=== PATIENT | female | born 1960 | race Caucasian/White ===

== ENCOUNTER 2024-02-11 11:28 | Inpatient (IN) ==
[2024-02-11 12:53] LABS: Basophils # (auto) 0.03 K/uL (0.00-0.20); Basophils % (auto) 0.2 %; Eosinophils # (auto) 0.03 K/uL (0.00-0.50); Eosinophils % (auto) 0.2 %; Hematocrit (blood only) 40.3 % (37.0-47.0); Hemoglobin 13.8 g/dl (12.0-16.0); Immature Granulocytes # (auto) 0.05 K/uL (0.01-0.20); Immature Granulocytes % (auto) 0.3 %; Lymphocytes # (auto) 1.42 K/uL (1.20-3.40); Lymphocytes % (auto) 9.3 %; Mean Corpuscular Hemoglobin 29.5 pg (25.0-34.0); Mean Corpuscular Hgb Conc 34.2 g/dL (32.0-36.0); Mean Corpuscular Volume 86.1 fL (80.0-100.0); Mean Platelet Volume 10.4 fL (9.4-12.4); Monocytes # (auto) 0.93 K/uL (0.11-0.59); Monocytes % (auto) 6.1 %; Neutrophils # (auto) 12.81 K/uL (1.40-6.50); Neutrophils % (auto) 83.9 %; Platelet Count 226 K/uL (130-400); RDW Coefficient of Variation 12.8 % (11.5-14.5); RDW Standard Deviation 39.9 fL (36.4-46.3); Red Blood Count 4.68 M/uL (4.20-5.40); White Blood Count 15.27 K/ul (4.8-10.8)
[2024-02-11 12:57] LABS: Albumin Globulin Ratio 1.7 (0.9-2); Albumin Level 4.7 gm/dl (3.4-5.0); BUN Creatinine Ratio 22.8 (10-20); Bilirubin,Total 0.8 mg/dl (0.2-1.0); Calcium 9.5 mg/dl (8.6-10.3); Creatinine Clr Calc Pharmacy 122.1 ml/min; Est GFR (Non-African American) 100.1 ml/min; Globulin 2.8 gm/dl (2.5-4.0); Potassium 3.5 mmol/L (3.5-5.1); Total Protein 7.5 gm/dl (6.0-8.3)
[2024-02-11] MEDS: ONDANSETRON INJ 2 MG/ML 2 ML VIAL IV STA (13:19)
[2024-02-11] MEDS: HYDROmorphone INJ 0.5 MG/0.5 ML SYR IV PRN (13:19)
--- NOTE | 2024-02-11 13:45 | Emergency Department Note ---
Impression & Plan Acute generalized abdominal pain ED Provider Note NAME: MATTHEW RICE AGE: 63 SEX: Female INFORMANT: Patient ED PROVIDER(S): Saud Grissom MD CHIEF COMPLAINT: Abdominal pain PLAN: Disposition: Admitted Outpatient prescription management: none Referral: None MEDICAL DECISION MAKING: Patient presented because of acute abdominal pain. She was guarding on examination. She had a leukocytosis on CBC. Chemistry panel was unremarkable. LFTs and lipase negative. The patient was given Zofran and Dilaudid. She was hydrated. She was sent to CT imaging. CT imaging shows a finding consistent with a perforated appendicitis. Patient was given IV Zosyn. She was much more comfortable on reassessment. Reviewed the findings with patient and family. Consultation was placed with Dr. Mckeon of general surgery. Reviewed the presentation and diagnostic findings. Patient will be taken emergently to the operating room for intervention of her perforated viscus. Care/management discussed with: client delivery manager Level of care consideration(s): After review of the information above and other included data, I feel the patient requires escalation of care to admission Triage Nursing notes: reviewed and agree them. Vital Signs: reviewed and remarkable for no significant abnormalities Additional History obtained from: none Chronic Medical/Social Conditions affecting care: Hypertension Prior/ Outside/ External records reviewed: none Differential Diagnosis: Perforated viscus, obstruction, renal colic, UTI, appendicitis, diverticulitis, mesenteric ischemia, aortic pathology, infections, inflammatory bowel disease, PUD, biliary pathology, as well as other pathologies. Diagnostics, independently interpreted by me: ECG: ECG from urgent care reviewed and patient had a normal sinus rhythm at 61 bpm. No evidence of ST elevation or depression. Cardiac Monitoring: Cardiac monitoring ordered by me: The patient was placed on continuous cardiac monitoring and observed. It revealed a normal sinus rhythm at 74 beats per minute without ectopy or evidence of dysrhythmia. Medical decision rules: none Imaging studies: CT imaging of the abdomen pelvis is consistent with a perforated appendicitis HPI: 63 year old Female arrives for evaluation of acute abdominal pain. This started last night gradually and is described as severe and generalized. The patient also notes the following associated symptoms, felt chilled today. The patient has taken no medication for relieving factors. Current pain is rated as 8/10. No prior history of the same. No prior problems with the gallbladder, liver, pancreas, kidneys. Patient notes she did have blood in her stool last month and was evaluated by PCP. Colonoscopy pending. She notes blood in her stool resolved. She had no abdominal pain at that time. Pt denies LOC, headache, fevers, chills, diaphoresis, visual changes, neck pain, chest pain, breathing difficulties, nausea, vomiting, back pain, melena, hematochezia, urinary symptoms, numbness, weakness, lymphadenopathy, rash, or other complaints.. PAST MEDICAL HISTORY: See Below, high cholesterol PAST SURGICAL HISTORY: See Below, SOCIAL HISTORY: See Below, non-smoker HOME MEDICATIONS: See Below ALLERGIES: See Below VITALS: See Below PHYSICAL EXAMINATION: GENERAL: Awake, alert, uncomfortable-appearing, in no distress HENT: Normocephalic, atraumatic. Oropharynx unremarkable. EYES: Normal conjunctiva. Sclera non-icteric. NECK: Inspection normal. Non-tender. Supple. No nuchal rigidity. FROM. No masses. RESPIRATORY: Clear to auscultation. No wheezes. No rales. Normal respiratory effort. CARDIAC: Normal rate. Normal rhythm. No murmurs. No rubs. Extremities warm and well perfused. Pulses equal. No JVD. GI: Soft, mild-distended. Generalized tenderness to palpation. Positive rebound. Positive guarding. No masses. RECTAL: Deferred. MUSCULOSKELETAL: Atraumatic. Chest examination reveals no tenderness. The back is symmetrical on inspection without obvious abnormality. There is no CVA tenderness to palpation. No joint edema. LOWER EXTREMITIES: Calves are equal size bilaterally and non-tender. No edema. No discoloration. NEURO: Normal sensorium. No sensory or motor deficits noted. SKIN: No rash or jaundice noted. PROCEDURES: none CRITICAL CARE: I have personally spent 35 minutes of critical care time in the direct management of this patient. This includes bedside care, interpretation of diagnostic studies, and testing, discussion with consultants, patient, and family members, and other required patient management activities. These minutes are in excess of all separately billable procedures. OBSERVATION NOTE: none Past Med/Surg History Problem List (Updated 02/11/24 @ 15:18 by Duncan Mckeon MD) Appendicitis Acute generalized abdominal pain (Acute) Neuropathic ulcer of toe of right foot (Acute) Medical History Dyslipidemia Hypertension Idiopathic peripheral neuropathy Surgical History History of ankle surgery Social History Smoking Status: Never smoker Second Hand Exposure: Yes; Hx Alcohol Use: Yes Preferred Language: Khmer Communication Ability: Effective Hearing Ability: Normal Solid Die Cutter Required: No Beliefs That Will Affect Care: None marital status: Current Living Situation: Spouse current occupational status: employed Feels Safe at Home: Yes Childhood Exposure to Second-Hand Smoke: No Diet: regular caffeine: Yes during the past year weight has: remained stable Assistive Devices: Glasses Allergies Allergies Allergy/AdvReac Type Severity Reaction Status Date / Time No Known Allergies Allergy Unverified 09/07/23 12:33 Home Meds Home Medications Medication Instructions Recorded Confirmed amlodipine 5 mg tablet 5 mg PO DAILY 07/04/23 02/11/24 atorvastatin 20 mg tablet 20 mg PO DAILY 07/04/23 02/11/24 losartan 100 1 tab PO DAILY 07/04/23 02/11/24 mg-hydrochlorothiazide 25 mg tablet meloxicam 15 mg tablet 15 mg PO DAILY PRN Other 07/04/23 02/11/24 mirabegron 25 mg tablet,extended 25 mg PO DAILY 07/04/23 02/11/24 release 24 hr (Myrbetriq) naltrexone 4.5 mg capsule 4.5 mg PO BID 07/04/23 02/11/24 carvedilol 12.5 mg tablet 12.5 mg PO BID 02/11/24 02/11/24 carvedilol 3.125 mg tablet 3.125 mg PO UD 02/11/24 02/11/24 hydroxychloroquine 200 mg tablet 200 mg PO DAILY 02/11/24 02/11/24 Results & Data (ED) Vital Signs Vital Signs - 24 hr 02/11/24 11:47 02/11/24 11:57 02/11/24 12:00 Temperature 36.3 C L Temperature Source Temporal Artery Scan Pulse Rate 78 Pulse Rate [Apical] 80 Pulse Rate from SpO2 Sensor Pulse Rhythm [Apical] Pulse Strength [Apical] Respiratory Rate 20 22 Respiratory Effort / Characteristics Respiratory Depth Respiratory Pattern Blood Pressure 133/69 131/69 Blood Pressure [Left Arm] Blood Pressure [Right Arm] 131/69 Blood Pressure Mean 90 97 Blood Pressure Mean [Left Arm] Blood Pressure Mean [Right Arm] 89 Blood Pressure Position [Left Arm] Blood Pressure Position [Right Arm] Pulse Oximetry 95 97 Oxygen Delivery Method Room Air Oxygen Flow Rate Sepsis Recent Fever Within 48 Hours No Sepsis New/Unexplained Change in Mental Status N/A Sepsis Action Taken by Nursing No Action Required 02/11/24 12:03 02/11/24 12:15 02/11/24 12:16 Temperature Temperature Source Pulse Rate 81 73 71 Pulse Rate [Apical] Pulse Rate from SpO2 Sensor 82 72 Pulse Rhythm [Apical] Pulse Strength [Apical] Respiratory Rate 22 18 Respiratory Effort / Characteristics Respiratory Depth Respiratory Pattern Blood Pressure Blood Pressure [Left Arm] Blood Pressure [Right Arm] Blood Pressure Mean Blood Pressure Mean [Left Arm] Blood Pressure Mean [Right Arm] Blood Pressure Position [Left Arm] Blood Pressure Position [Right Arm] Pulse Oximetry 98 99 Oxygen Delivery Method Oxygen Flow Rate Sepsis Recent Fever Within 48 Hours Sepsis New/Unexplained Change in Mental Status Sepsis Action Taken by Nursing 02/11/24 12:30 02/11/24 12:30 02/11/24 12:30 Temperature Temperature Source Pulse Rate 74 Pulse Rate [Apical] Pulse Rate from SpO2 Sensor 74 Pulse Rhythm [Apical] Pulse Strength [Apical] Respiratory Rate 22 Respiratory Effort / Characteristics Respiratory Depth Respiratory Pattern Blood Pressure 131/81 131/81 Blood Pressure [Left Arm] Blood Pressure [Right Arm] Blood Pressure Mean 96 96 Blood Pressure Mean [Left Arm] Blood Pressure Mean [Right Arm] Blood Pressure Position [Left Arm] Blood Pressure Position [Right Arm] Pulse Oximetry 96 Oxygen Delivery Method Oxygen Flow Rate Sepsis Recent Fever Within 48 Hours Sepsis New/Unexplained Change in Mental Status Sepsis Action Taken by Nursing 02/11/24 12:39 02/11/24 12:45 02/11/24 13:01 Temperature Temperature Source Pulse Rate 75 78 Pulse Rate [Apical] Pulse Rate from SpO2 Sensor 75 Pulse Rhythm [Apical] Pulse Strength [Apical] Respiratory Rate 22 18 Respiratory Effort / Characteristics Respiratory Depth Respiratory Pattern Blood Pressure 113/54 L Blood Pressure [Left Arm] Blood Pressure [Right Arm] Blood Pressure Mean 76 Blood Pressure Mean [Left Arm] Blood Pressure Mean [Right Arm] Blood Pressure Position [Left Arm] Blood Pressure Position [Right Arm] Pulse Oximetry 96 97 Oxygen Delivery Method Room Air Oxygen Flow Rate Sepsis Recent Fever Within 48 Hours Sepsis New/Unexplained Change in Mental Status Sepsis Action Taken by Nursing 02/11/24 13:03 02/11/24 13:12 02/11/24 14:20 Temperature Temperature Source Pulse Rate 76 74 Pulse Rate [Apical] 83 Pulse Rate from SpO2 Sensor 76 75 Pulse Rhythm [Apical] Pulse Strength [Apical] Respiratory Rate 16 20 18 Respiratory Effort / Characteristics Respiratory Depth Respiratory Pattern Blood Pressure Blood Pressure [Left Arm] Blood Pressure [Right Arm] 140/74 Blood Pressure Mean Blood Pressure Mean [Left Arm] Blood Pressure Mean [Right Arm] 96 Blood Pressure Position [Left Arm] Blood Pressure Position [Right Arm] Semi-fowlers Pulse Oximetry 97 98 96 Oxygen Delivery Method Oxygen Flow Rate Sepsis Recent Fever Within 48 Hours Sepsis New/Unexplained Change in Mental Status Sepsis Action Taken by Nursing 02/11/24 16:00 02/11/24 18:20 02/11/24 18:30 Temperature 37 C Temperature Source Temporal Artery Scan Pulse Rate Pulse Rate [Apical] 73 102 H 97 H Pulse Rate from SpO2 Sensor Pulse Rhythm [Apical] Regular Regular Regular Pulse Strength [Apical] Normal Normal Respiratory Rate 20 16 21 Respiratory Effort / Characteristics Non-Labored Spontaneous Non-Labored Spontaneous Non-Labored Spontaneous Respiratory Depth Normal Normal Normal Respiratory Pattern Regular Regular Regular Blood Pressure Blood Pressure [Left Arm] 117/69 119/74 Blood Pressure [Right Arm] 131/82 Blood Pressure Mean Blood Pressure Mean [Left Arm] 85 89 Blood Pressure Mean [Right Arm] 98 Blood Pressure Position [Left Arm] Semi-fowlers Semi-fowlers Blood Pressure Position [Right Arm] Pulse Oximetry 96 98 98 Oxygen Delivery Method Room Air Oxymask Oxymask Oxygen Flow Rate 6 4 Sepsis Recent Fever Within 48 Hours Sepsis New/Unexplained Change in Mental Status Sepsis Action Taken by Nursing 02/11/24 18:40 02/11/24 18:50 02/11/24 19:00 Temperature 37.7 C H Temperature Source Oral Pulse Rate Pulse Rate [Apical] 94 H 95 H 95 H Pulse Rate from SpO2 Sensor Pulse Rhythm [Apical] Regular Regular Regular Pulse Strength [Apical] Normal Normal Normal Respiratory Rate 21 22 13 Respiratory Effort / Characteristics Non-Labored Spontaneous Non-Labored Spontaneous Non-Labored Spontaneous Respiratory Depth Normal Normal Normal Respiratory Pattern Regular Regular Regular Blood Pressure Blood Pressure [Left Arm] 118/68 126/66 121/70 Blood Pressure [Right Arm] Blood Pressure Mean Blood Pressure Mean [Left Arm] 84 86 87 Blood Pressure Mean [Right Arm] Blood Pressure Position [Left Arm] Semi-fowlers Semi-fowlers Semi-fowlers Blood Pressure Position [Right Arm] Pulse Oximetry 96 92 94 Oxygen Delivery Method Oxymask Nasal Cannula Nasal Cannula Oxygen Flow Rate 4 2 2 Sepsis Recent Fever Within 48 Hours Sepsis New/Unexplained Change in Mental Status Sepsis Action Taken by Nursing 02/11/24 19:10 02/11/24 19:25 Temperature Temperature Source Pulse Rate Pulse Rate [Apical] 93 H 96 H Pulse Rate from SpO2 Sensor Pulse Rhythm [Apical] Regular Regular Pulse Strength [Apical] Normal Normal Respiratory Rate 20 19 Respiratory Effort / Characteristics Non-Labored Spontaneous Non-Labored Spontaneous Respiratory Depth Normal Normal Respiratory Pattern Regular Regular Blood Pressure Blood Pressure [Left Arm] 124/68 117/68 Blood Pressure [Right Arm] Blood Pressure Mean Blood Pressure Mean [Left Arm] 86 84 Blood Pressure Mean [Right Arm] Blood Pressure Position [Left Arm] Semi-fowlers Semi-fowlers Blood Pressure Position [Right Arm] Pulse Oximetry 94 94 Oxygen Delivery Method Nasal Cannula Nasal Cannula Oxygen Flow Rate 2 2 Sepsis Recent Fever Within 48 Hours Sepsis New/Unexplained Change in Mental Status Sepsis Action Taken by Nursing Laboratory Data 02/11/24 12:10 02/11/24 12:10 Lab Results 02/11/24 Range/Units 12:10 WBC 15.27 H (4.8-10.8) K/ul RBC 4.68 (4.20-5.40) M/uL Hgb 13.8 (12.0-16.0) g/dl Hct 40.3 (37.0-47.0) % MCV 86.1 (80.0-100.0) fL MCH 29.5 (25.0-34.0) pg MCHC 34.2 (32.0-36.0) g/dL RDW Std Deviation 39.9 (36.4-46.3) fL RDW Coeff of Tomas 12.8 (11.5-14.5) % Plt Count 226 (130-400) K/uL MPV 10.4 (9.4-12.4) fL Immature Gran % (Auto) 0.3 % Neut % (Auto) 83.9 % Lymph % (Auto) 9.3 % [place] % (Auto) 6.1 % Eos % (Auto) 0.2 % Baso % (Auto) 0.2 % Neut # (Auto) 12.81 H (1.40-6.50) K/uL Lymph # (Auto) 1.42 (1.20-3.40) K/uL [place] # (Auto) 0.93 H (0.11-0.59) K/uL Eos # (Auto) 0.03 (0.00-0.50) K/uL Baso # (Auto) 0.03 (0.00-0.20) K/uL Immature Gran # (Auto) 0.05 (0.01-0.20) K/uL Sodium 135 L (136-145) mmol/L Potassium 3.5 (3.5-5.1) mmol/L Chloride 98 (98-107) mmol/L Carbon Dioxide 28 (21-32) mmol/L Anion Gap 9 (3-11) BUN 13 (6-23) mg/dl Creatinine 0.57 L (0.6-1.2) mg/dl Est Cr Clr Drug Dosing 122.1 ml/min Est GFR ( Amer) 116.0 ml/min Est GFR (Non-Af Amer) 100.1 ml/min BUN/Creatinine Ratio 22.8 H (10-20) Glucose 118 H (70-99(Fasting)) mg/dl Calcium 9.5 (8.6-10.3) mg/dl Total Bilirubin 0.8 (0.2-1.0) mg/dl AST 15 (13-39) U/L ALT 23 (7-52) U/L Alkaline Phosphatase 54 (34-104) U/L Total Protein 7.5 (6.0-8.3) gm/dl Albumin 4.7 (3.4-5.0) gm/dl Globulin 2.8 (2.5-4.0) gm/dl Albumin/Globulin Ratio 1.7 (0.9-2) Lipase 22 (11-82) U/L Administered Medications Hydromorphone HCl (Hydromorphone Inj 0.5 Mg/0.5 Ml Syr) 0.5 mg IV Q15M PRN PRN Reason: Pain Stop: 02/25/24 13:11 Last Admin: 02/11/24 13:32 Dose: 0.5 mg Documented By: Admin: 02/11/24 13:19 Dose: 0.5 mg Documented By: ML Discontinued Medications Bupivacaine HCl/Epinephrine Bitart (Bupivacaine/Epinephrine 0.5% Mpf 1:200,000 30 Ml Vial) Confirm Administered Dose 30 ml .ROUTE .STK-MED ONE Stop: 02/11/24 16:22 Last Admin: 02/11/24 17:59 Dose: 20 ml Documented By: [facility] Sodium Chloride (Nss) 1,000 mls @ 999 mls/hr IV .Q1H1M ONE Stop: 02/11/24 14:27 Last Admin: 02/11/24 14:19 Dose: 999 mls/hr Documented By: ML Piperacillin Sod/Tazobactam Sod (Zosyn) 4.5 gm in 100 mls @ 200 mls/hr IV NOW ONE Stop: 02/11/24 14:56 Last Admin: 02/11/24 14:31 Dose: 200 mls/hr Documented By: ML Ondansetron HCl (Ondansetron Inj 2 Mg/Ml 2 Ml Vial) 4 mg IV NOW STA Stop: 02/11/24 13:13 Last Admin: 02/11/24 13:19 Dose: 4 mg Documented By: ML Imaging Data Radiologist's Impression: Abdomen/Pelvis CT 02/11/24 13:26 CT OF THE ABDOMEN AND PELVIS WITHOUT CONTRAST CLINICAL HISTORY: severe abd pain, guarding, yobani WBC ?perf COMPARISON STUDY: No previous studies for comparison. TECHNIQUE: Axial images of the abdomen and pelvis were obtained without IV contrast. Images were reviewed in the axial, sagittal, and coronal planes. Automated exposure control was utilized for the study. A dose lowering technique was utilized adhering to the principles of ALARA. FINDINGS: Lung bases are unremarkable. No hepatic lesions are identified on unenhanced exam. Spleen, adrenal glands, kidneys and pancreas are unremarkable. There is no biliary or pancreatic ductal dilatation. The gallbladder is distended however there is no pericholecystic infiltration. There is no hydronephrosis. A small amount of fluid within the pelvis is present. There is no evidence for a bowel obstruction. The appendix is dilated, measuring 1.1 cm in caliber. There is extensive periappendiceal inflammation with a small amount of fluid. Single locule of extraluminal gas within the adjacent mesentery is present. There is thickening of the base of the cecum, likely reflecting edema. Prominent ileocolic lymph nodes are noted. None are pathologically enlarged. These may be reactive. There is a small amount of associated fluid within the right paracolic gutter. IMPRESSION: Findings consistent with perforated acute appendicitis. Dilated appendix with extensive periappendiceal infiltration and a small amount of periappendiceal fluid as well as fluid within the right paracolic gutter and pelvis. Single locule of extraluminal gas consistent with perforation. Thickening at the base of the cecum suggest edema related to acute appendicitis. Although less likely, an underlying lesion cannot be excluded and can be assessed at time of surgery. ACT 112: Negative or not required by law. Electronically signed by: Vincent Boyd M.D. 02/11/2024 2:18 PM Discharge Plan Visit Data Chief Complaint: Abdominal Pain Stated Complaint: ABDOMINAL PAIN, REF BY DOC ED Provider: Saud Grissom Discharge Problem: Acute generalized abdominal pain Patient Disposition: Admitted As Inpatient Discharge Instructions Interventions: ED Discharge Assessment Last Done: 02/11/24 16:31
[2024-02-11] MEDS: SODIUM CHLORIDE 0.9% 1,000 ML IV ONE (14:19)
--- NOTE | 2024-02-11 14:20 | CT Scan Report ---
CT OF THE ABDOMEN AND PELVIS WITHOUT CONTRAST CLINICAL HISTORY: severe abd pain, guarding, yobani WBC ?perf COMPARISON STUDY: No previous studies for comparison. TECHNIQUE: Axial images of the abdomen and pelvis were obtained without IV contrast. Images were revi ewed in the axial, sagittal, and coronal planes. Automated exposure control was utilized for the roe dy. A dose lowering technique was utilized adhering to the principles of ALARA. FINDINGS: Lung bases are unremarkable. No hepatic lesions are identified on unenhanced exam. Spleen, adrenal glands, kidneys and pancreas are unremarkable. There is no biliary or pancreatic ductal dilat ation. The gallbladder is distended however there is no pericholecystic infiltration. There is no hyd ronephrosis. A small amount of fluid within the pelvis is present. There is no evidence for a bowel o bstruction. The appendix is dilated, measuring 1.1 cm in caliber. There is extensive periappendiceal inflammation with a small amount of fluid. Single locule of extraluminal gas within the adjacent mese ntery is present. There is thickening of the base of the cecum, likely reflecting edema. Prominent il eocolic lymph nodes are noted. None are pathologically enlarged. These may be reactive. There is a sm all amount of associated fluid within the right paracolic gutter. IMPRESSION: Findings consistent with perforated acute appendicitis. Dilated appendix with extensive p eriappendiceal infiltration and a small amount of periappendiceal fluid as well as fluid within the r ight paracolic gutter and pelvis. Single locule of extraluminal gas consistent with perforation. Thic kening at the base of the cecum suggest edema related to acute appendicitis. Although less likely, an underlying lesion cannot be excluded and can be assessed at time of surgery. ACT 112: Negative or not required by law. Electronically signed by: Vincent Boyd M.D. 02/11/2024 2:18 PM
[2024-02-11] MEDS: PIPERACILLIN/TAZOBACTAM 4.5 GM/100 ML BAG IV ONE (14:31)
--- NOTE | 2024-02-11 14:56 | History & Physical Report ---
Date of Service February 11, 2024 Assessment & Plan (1) Appendicitis: Plan: IVF IV abx to OR for lap appendectomy History of Present Illness Primary Care Provider: NO PCP This is a 63 year old female with generalized acute abdominal pain. It started last night gradually and is described as severe and generalized. She has associated symptoms chills not no nausea or vomiting. She denies fevers. She has had some rectal bleeding and was scheduled for outpatient colonoscopy. CT scan shows appendicitis with micro-perforation and extensive inflammation, cecal wall thickening. Allergies Allergy/AdvReac Type Severity Reaction Status Date / Time No Known Allergies Allergy Unverified 09/07/23 12:33 Home Medications Medication Instructions Recorded Confirmed Type amlodipine 5 mg tablet 5 mg PO DAILY 07/04/23 History atorvastatin 20 mg tablet 20 mg PO DAILY 07/04/23 History losartan 100 1 tab PO DAILY 07/04/23 History mg-hydrochlorothiazide 25 mg tablet meloxicam 15 mg tablet 15 mg PO DAILY 07/04/23 History metoprolol succinate 50 mg capsule 50 mg PO DAILY 07/04/23 History sprinkle, ext. release 24 hr mirabegron 25 mg tablet,extended 25 mg PO DAILY 07/04/23 History release 24 hr (Myrbetriq) naltrexone 4.5 mg capsule mg PO BID 07/04/23 History Past Med/Surg History Problem List (Updated 02/11/24 @ 15:18 by Duncan Mckeon MD) Appendicitis Acute generalized abdominal pain (Acute) Neuropathic ulcer of toe of right foot (Acute) Medical History Dyslipidemia Hypertension Idiopathic peripheral neuropathy Surgical History History of ankle surgery Social History Smoking Status: Never smoker Second Hand Exposure: Yes; Hx Alcohol Use: Yes Preferred Language: Urdu Communication Ability: Effective Hearing Ability: Normal Guest Relations Representative Required: No Beliefs That Will Affect Care: None marital status: Current Living Situation: Spouse current occupational status: employed Feels Safe at Home: Yes Childhood Exposure to Second-Hand Smoke: No Diet: regular caffeine: Yes during the past year weight has: remained stable Assistive Devices: Glasses Review of Systems + chills and + anorexia; no fever no problem reported no problem reported no cough and no dyspnea no chest pain + abdominal pain; no nausea, no vomiting and no change in bowel habits no dysuria no back pain no problem reported no localized weakness and no generalized weakness no behavioral changes no fatigue no easy bleeding and no easy bruising Physical Exam Constitutional: WD/WN, vitals as above Eyes: PERRL, conjunctivae normal, anicteric sclerae ENMT: external ear and nose normal, oropharynx normal Neck: trachea midline, no thyromegaly Respiratory: normal respiratory effort, lungs clear to auscultation Cardiovascular: RRR, no murmur, no edema Gastrointestinal (Abdomen): Inspection/Auscultation: abdomen normal to inspection and normal bowel sounds; abdomen not distended Percussion/Palpation: + abdomen tender, + guarding and abdomen soft; abdomen not rigid Musculoskeletal: Head/Neck/Chest: normocephalic and head atraumatic Skin: no rashes, warm and dry Psychiatric: Orientation: alert Results & Data Vital Signs (Past 12 Hours) Vital Signs Temp Pulse Pulse Resp BP BP Pulse Ox 02/11/24 14:20 83 18 140/74 96 02/11/24 13:12 74 20 98 02/11/24 13:03 76 16 97 02/11/24 13:01 113/54 L 02/11/24 12:45 78 18 97 02/11/24 12:39 75 22 96 02/11/24 12:30 74 22 96 02/11/24 12:30 131/81 02/11/24 12:30 131/81 02/11/24 12:16 71 02/11/24 12:15 73 18 99 02/11/24 12:03 81 22 98 02/11/24 12:00 131/69 02/11/24 11:57 80 22 131/69 97 02/11/24 11:47 36.3 C L 78 20 133/69 95 O2 Del Method 02/11/24 14:20 02/11/24 13:12 02/11/24 13:03 02/11/24 13:01 02/11/24 12:45 Room Air 02/11/24 12:39 02/11/24 12:30 02/11/24 12:30 02/11/24 12:30 02/11/24 12:16 02/11/24 12:15 02/11/24 12:03 02/11/24 12:00 02/11/24 11:57 Room Air 02/11/24 11:[address] OF THE ABDOMEN AND PELVIS WITHOUT CONTRAST CLINICAL HISTORY: severe abd pain, guarding, yobani WBC ?perf COMPARISON STUDY: No previous studies for comparison. TECHNIQUE: Axial images of the abdomen and pelvis were obtained without IV contrast. Images were reviewed in the axial, sagittal, and coronal planes. Automated exposure control was utilized for the study. A dose lowering technique was utilized adhering to the principles of ALARA. FINDINGS: Lung bases are unremarkable. No hepatic lesions are identified on unenhanced exam. Spleen, adrenal glands, kidneys and pancreas are unremarkable. There is no biliary or pancreatic ductal dilatation. The gallbladder is distended however there is no pericholecystic infiltration. There is no hydronephrosis. A small amount of fluid within the pelvis is present. There is no evidence for a bowel obstruction. The appendix is dilated, measuring 1.1 cm in caliber. There is extensive periappendiceal inflammation with a small amount of fluid. Single locule of extraluminal gas within the adjacent mesentery is present. There is thickening of the base of the cecum, likely reflecting edema. Prominent ileocolic lymph nodes are noted. None are pathologically enlarged. These may be reactive. There is a small amount of associated fluid within the right paracolic gutter. IMPRESSION: Findings consistent with perforated acute appendicitis. Dilated appendix with extensive periappendiceal infiltration and a small amount of periappendiceal fluid as well as fluid within the right paracolic gutter and pelvis. Single locule of extraluminal gas consistent with perforation. Thickening at the base of the cecum suggest edema related to acute appendicitis. Although less likely, an underlying lesion cannot be excluded and can be assessed at time of surgery.
[2024-02-11] MEDS ORDERED: ROCURONIUM BROMIDE 10 MG/ML 5 ML VIAL IV ONE (16:24)
[2024-02-11] MEDS ORDERED: LIDOCAINE 2% 2 ML VIAL/AMP(20MG/ML) INFIL ONE (16:24)
[2024-02-11] MEDS ORDERED: MIDAZOLAM HCL 1 MG/ML 2ML VIAL ONE (16:24)
[2024-02-11] MEDS ORDERED: PROPOFOL IV EMULSION 10 MG/ML 20 ML VIAL IV ONE (16:24)
[2024-02-11] MEDS ORDERED: fentaNYL citrate PF 100 MCG/2 ML VIAL ONE (16:24)
[2024-02-11] MEDS ORDERED: fentaNYL citrate PF 100 MCG/2 ML VIAL IV PRN (17:08)
[2024-02-11] MEDS ORDERED: ATROPINE SULFATE 0.1 MG/ML 10ML SYR IV PRN (17:08)
[2024-02-11] MEDS ORDERED: PROMETHAZINE HCL 6.25 MG in SODIUM CHLORIDE 0.9% 50 ML IV PRN (17:08)
[2024-02-11] MEDS ORDERED: ONDANSETRON INJ 2 MG/ML 2 ML VIAL IV PRN (17:08)
[2024-02-11] MEDS ORDERED: ePHEDrine sulfate 50 MG/ML AMP IV PRN (17:08)
--- NOTE | 2024-02-11 17:15 | Anesthesiology Consultation ---
Date of Service February 11, 2024 Assessment & Plan Chart Review Chart Review: Acceptable Risk for Surgery and Patient NOT seen in Pre Admission Testing Consults Requested none ASA [id number] Proposed Anesthesia Anesthesia Type: General Risk / Benefits Reviewed With: PT / POA / Parent / Guardian, Accepts Plan and Informed Consent Obtained History Surgery Operation Date: 02/11/24 16:00 Proposed Procedures p Laparoscopic Appendectomy - Duncan Mckeon MD Height/Weight Height: 5 ft 7 in Weight: 94.1 kg Allergies Allergy/AdvReac Type Severity Reaction Status Date / Time No Known Allergies Allergy Unverified 09/07/23 12:33 Medications Home Medications Medication Instructions Recorded Confirmed Last Taken amlodipine 5 mg tablet 5 mg PO DAILY 07/04/23 02/11/24 Unknown atorvastatin 20 mg tablet 20 mg PO DAILY 07/04/23 02/11/24 Unknown losartan 100 1 tab PO DAILY 07/04/23 02/11/24 Unknown mg-hydrochlorothiazide 25 mg tablet meloxicam 15 mg tablet 15 mg PO DAILY PRN Other 07/04/23 02/11/24 Unknown mirabegron 25 mg tablet,extended 25 mg PO DAILY 07/04/23 02/11/24 Unknown release 24 hr (Myrbetriq) naltrexone 4.5 mg capsule 4.5 mg PO BID 07/04/23 02/11/24 Unknown carvedilol 12.5 mg tablet 12.5 mg PO BID 02/11/24 02/11/24 Unknown carvedilol 3.125 mg tablet 3.125 mg PO UD 02/11/24 02/11/24 Unknown hydroxychloroquine 200 mg tablet 200 mg PO DAILY 02/11/24 02/11/24 Unknown Active Medications Generic Name Dose Route Start Last Admin Trade Name Freq PRN Reason Stop Dose Admin Hydromorphone HCl 0.5 mg 02/11/24 13:12 02/11/24 13:32 Hydromorphone Inj 0.5 Mg/0.5 Ml Syr IV 02/25/24 13:11 0.5 mg Q15M PRN Administration Pain NPO Date Last Intake of Fluids: 02/11/24 Time Last Intake of Fluids: 11:30 Last Intake of Fluids Comment: small sips of water Date Last Intake of Solids: 02/11/24 Time Last Intake of Solids: 06:00 Last Intake of Solids Comment: oatmeal very small amount Past Medical History Medical History Dyslipidemia Hypertension Idiopathic peripheral neuropathy Exercise / Class Metabolic Activity II 4-5 Yardwork/Stairs/Walk up hill Past Surgical History Surgical History History of ankle surgery Past Anesthesia History No Hx of Anesthesia Complications and No Family Hx of Anesthesia Complications History of PONV No Hx of PONV and No Hx of Motion Sickness Social History Smoking Status: Never smoker Hx Alcohol Use: Yes Physical Exam Vital Signs Last Vital Signs Temp 36.3 C L 02/11/24 11:47 Pulse 73 02/11/24 16:00 Resp 20 02/11/24 16:00 BP 131/82 02/11/24 16:00 Pulse Ox 96 02/11/24 16:00 O2 Del Method Room Air 02/11/24 16:00 ENMT Mouth: no dentition abnormality Thyromental Distance: > or= 3.5 Finger Breadths Mallampati Class: II Neck normal visual inspection Respiratory normal respiratory effort Auscultation: lungs clear to auscultation bilaterally Cardiovascular Rate/Rhythm: regular rate and regular rhythm Psychiatric Orientation: alert Testing Laboratory Results 02/11/24 12:10 02/11/24 12:10
[2024-02-11] MEDS ORDERED: KETOROLAC 30 MG/ML VIAL ONE (17:44)
[2024-02-11] MEDS ORDERED: ONDANSETRON INJ 2 MG/ML 2 ML VIAL ONE (17:44)
[2024-02-11] MEDS ORDERED: DEXAMETHASONE SOD INJ 4 MG/ML VIAL ONE (17:44)
[2024-02-11] MEDS ORDERED: SUGAMMADEX SODIUM 200 MG/2 ML VIAL IV ONE (17:48)
[2024-02-11] MEDS: BUPIVACAINE/EPINEPHRINE 0.5% MPF 1:200,000 30 ML VIAL ONE (17:59)
--- NOTE | 2024-02-11 18:21 | Operative Report ---
Post Operative Report Pre & Post Diagnosis Operation Date: 02/11/24 16:00 Perforated appendicitis I identified the patient and participated in the time-out.: Yes Procedure Operation Date: 02/11/24 16:00 Laparoscopic appendectomy Surgeon Duncan Mckeon MD Causticiser None Estimated Blood Loss 25 Findings Consistent with Post-Op Diagnosis Perforated appendicitis with walled off phlegmon Specimens Appendix to pathology Drains Bill drain in the right lower quadrant Anesthesia Type General Complications None Indications This is a 63-year-old female seen in the ED after consult from emergency room physician for acute appendicitis. She has had 2 to 3 days of abdominal pain a CT was done which shows a microperforation of her appendix along with significant inflammation in the right lower quadrant. I will plan on doing a laparoscopic appendectomy. The risks with her in detail. Description of Procedure The patient was taken to the OR and underwent excellent general anesthesia. Their abdomen was prepped and draped in normal sterile fashion. A transverse supraumbilical incision was made, towel clamps were used to create tension on the abdominal wall as a Varess needle was inserted gently into the peritoneal cavity. Good pneumoperitoneum was achieved to about 15 mmHg pressure. Once this was done, a visualized 11 port was placed in the supraumbilical position. A 12 mm left lower quadrant port , a 5mm suprapubic port , and a 5mm right upper quadrant port were placed in normal fashion. Patient was then placed in head down and rolled to the left. A good diagnostic lap was performed. They had obvious acute appendicitis with a RLQ phlegmon and purulent fluid in the pelvis. The cecum was grasped with an atraumatic grasper. A grasper was then was then used to grasp the tip of the appendix. The mesoappendix was splayed open and a harmonic scalpel was used to take down the mesoappendix. The base of the appendix was identified and an Endo FERN stapler was used to transect the appendix at its base. A Endobag was then inserted through the left lower quadrant port and the appendix was placed into the bag, The bag was removed through the left lower quadrant port. The appendix was then sent for pathologic evaluation. Pneumoperitoneum was re-established and the 12 mm port was replaced. Saline was then used to irrigate the abdomen. There was no active bleeding nor any other abnormalities noted in the abdomen. Patient was then placed back in neutral position, a bill drain was placed into the RLQ and secured with a nylon suture. The ports were removed and the pneumoperitoneum decompressed. The 12mm port fascia was then closed using a 0 Vicryl. The skin was then anesthetized with 0.5% Marcaine with epinephrine local. Interrupted Vicryl is used to close the skin. Dermabond was used to reinforce the incisions. Sterile dressings were applied. The patient tolerated procedure without complications was sent to the postop recovery period of observation. They will be sent to the floor for the rest of their care. I attest to the content of the Intraoperative Record and any orders documented therein. Any exceptions are noted below.
--- NOTE | 2024-02-11 18:39 | Anesthesiology Progress Note ---
Date of Service February 11, 2024 Anesthesia Post Procedure Vital Signs Vital Signs: Temp Pulse Pulse Resp BP BP Pulse Ox 02/11/24 16:00 73 20 131/82 96 02/11/24 14:20 83 18 140/74 96 02/11/24 13:12 74 20 98 02/11/24 13:03 76 16 97 02/11/24 13:01 113/54 L 02/11/24 12:45 78 18 97 02/11/24 12:39 75 22 96 02/11/24 12:30 74 22 96 02/11/24 12:30 131/81 02/11/24 12:30 131/81 02/11/24 12:16 71 02/11/24 12:15 73 18 99 02/11/24 12:03 81 22 98 02/11/24 12:00 131/69 02/11/24 11:57 80 22 131/69 97 02/11/24 11:47 36.3 C L 78 20 133/69 95 O2 Del Method 02/11/24 16:00 Room Air 02/11/24 14:20 02/11/24 13:12 02/11/24 13:03 02/11/24 13:01 02/11/24 12:45 Room Air 02/11/24 12:39 02/11/24 12:30 02/11/24 12:30 02/11/24 12:30 02/11/24 12:16 02/11/24 12:15 02/11/24 12:03 02/11/24 12:00 02/11/24 11:57 Room Air 02/11/24 11:47 Pain Intensity Abdomen: Pain Intensity: 7 Transfer of Care Handoff Completed per policy Notes Mental Status: alert / awake / arousable Patient Amnestic to Procedure: Yes Nausea / Vomiting: adequately controlled Pain: adequately controlled Airway Patency, RR, SpO2: stable & adequate BP & HR: stable & adequate Hydration State: stable & adequate Anesthetic Complications: no major complications apparent
[2024-02-11] MEDS ORDERED: oxyCODONE/ACETAMINOPHEN 5mg/325mg TAB PO PRN (19:59)
[2024-02-11] MEDS ORDERED: PROMETHAZINE 25 MG/51 ML BAG IV PRN (19:59)
[2024-02-11] MEDS ORDERED: carvediloL 3.125 MG TAB PO SCH (19:59)
[2024-02-11] MEDS ORDERED: MoRPHine SULFATE 2 MG/ML CARP IV PRN (19:59)
[2024-02-11] MEDS ORDERED: MoRPHine SULFATE 4 MG/ML 1 ML CARP\\VIAL IV PRN (19:59)
[2024-02-11] MEDS: PIPERACILLIN/TAZOBACTAM 4.5 GM/100 ML BAG IV SCH (21:13)
[2024-02-11] MEDS: FAMOTIDINE 20 MG TAB PO SCH (21:13)
[2024-02-11] MEDS: carvediloL 12.5 MG TAB PO SCH (21:13)
[2024-02-11] MEDS: oxyCODONE/ACETAMINOPHEN 5mg/325mg TAB PO PRN (21:13)
[2024-02-11] MEDS: LACTATED RINGER'S 1,000 ML IV SCH (21:14)
[2024-02-11 22:04] LABS: Appearance Urine Cloudy (Clear); Bacteria Urine Automated None Seen (None Seen); Bilirubin Urine 1+ (Negative); Blood Urine Negative (Negative); Cast Urine Automated 0-2 /lpf (0-2); Color Urine Dark Yellow; Epithelial Cell Urine Auto 0-2 /hpf (0-2); Glucose Urine UA Negative (Negative); Ketones Urine Trace (Negative); Leukocyte Esterase Urine Negative (Negative); Nitrite Urine Negative (Negative); Protein Urine 2+ (Negative); Specific Gravity Urine 1.031 (1.000-1.030); Urobilinogen Urine Negative (Negative); WBC Urine Automated 0-5 /hpf (0-5); pH Urine 5.5 (4.5-7.5)
--- NOTE | 2024-02-12 06:53 | Surgery Progress Note ---
Date of Service February 12, 2024 Assessment & Plan (1) Appendicitis: Plan: con't IV abx ambulate con't clears check CBC in AM Admission and Anticipated Discharge Date Admission Date: February 11, 2024 Subjective feels better not much po Review of Systems Constitutional: + anorexia; no fever and no chills Respiratory: no cough and no dyspnea Cardiovascular: no chest pain Gastrointestinal: + abdominal pain; no nausea, no vomiting and no change in bowel habits Genitourinary: no dysuria Neurologic: no localized weakness and no generalized weakness Psychiatric: no behavioral changes Physical Exam Constitutional: WD/WN, vitals as above Respiratory: normal respiratory effort, lungs clear to auscultation Cardiovascular: RRR, no murmur, no edema Gastrointestinal (Abdomen): Inspection/Auscultation: abdomen normal to inspection and normal bowel sounds; abdomen not distended Percussion/Palpation: + abdomen tender and abdomen soft; no guarding and abdomen not rigid OLIVIA serosanguinous Musculoskeletal: Head/Neck/Chest: normocephalic and head atraumatic Results & Data Vital Signs (Past 12 Hours) Vital Signs Temp Pulse Pulse Resp BP Pulse Ox O2 Del Method 02/12/24 03:21 37.1 C 76 16 104/65 92 Nasal Cannula 02/11/24 23:59 36.8 C 70 16 103/64 94 Nasal Cannula 02/11/24 22:36 36.9 C 78 16 97/61 L 94 Nasal Cannula 02/11/24 21:30 36.9 C 89 16 104/66 95 Nasal Cannula 02/11/24 20:36 37.3 C 91 H 16 123/78 94 Nasal Cannula 02/11/24 20:05 37 C 93 H 16 114/75 93 Nasal Cannula 02/11/24 19:35 Nasal Cannula 02/11/24 19:35 37.2 C 94 H 16 116/76 93 Nasal Cannula 02/11/24 19:25 96 H 19 117/68 94 Nasal Cannula 02/11/24 19:10 93 H 20 124/68 94 Nasal Cannula 02/11/24 19:00 95 H 13 121/70 94 Nasal Cannula O2 Flow Rate 02/12/24 03:21 2 02/11/24 23:59 2 02/11/24 22:36 2 02/11/24 21:30 2 02/11/24 20:36 2 02/11/24 20:05 2 02/11/24 19:35 2 02/11/24 19:35 2 02/11/24 19:25 2 02/11/24 19:10 2 02/11/24 19:00 2
[2024-02-12] MEDS: LOSARTAN/HCTZ 50/12.5MG TAB PO SCH (08:26)
[2024-02-12] MEDS: ATORVASTATIN 20 MG TAB PO SCH (08:26)
[2024-02-12] MEDS: amLODIPine BESYLATE 5 MG TAB PO SCH (08:26)
[2024-02-13 07:23] LABS: Basophils # (auto) 0.02 K/uL (0.00-0.20); Basophils % (auto) 0.1 %; Eosinophils # (auto) 0.03 K/uL (0.00-0.50); Eosinophils % (auto) 0.2 %; Hematocrit (blood only) 33.8 % (37.0-47.0); Hemoglobin 11.6 g/dl (12.0-16.0); Immature Granulocytes # (auto) 0.07 K/uL (0.01-0.20); Immature Granulocytes % (auto) 0.5 %; Lymphocytes # (auto) 1.85 K/uL (1.20-3.40); Lymphocytes % (auto) 12.4 %; Mean Corpuscular Hemoglobin 29.6 pg (25.0-34.0); Mean Corpuscular Hgb Conc 34.3 g/dL (32.0-36.0); Mean Corpuscular Volume 86.2 fL (80.0-100.0); Mean Platelet Volume 10.7 fL (9.4-12.4); Monocytes # (auto) 0.99 K/uL (0.11-0.59); Monocytes % (auto) 6.6 %; Neutrophils % (auto) 80.2 %; Platelet Count 197 K/uL (130-400); RDW Coefficient of Variation 12.8 % (11.5-14.5); RDW Standard Deviation 39.8 fL (36.4-46.3); Red Blood Count 3.92 M/uL (4.20-5.40); White Blood Count 14.96 K/ul (4.8-10.8)
--- NOTE | 2024-02-13 08:59 | Surgery Progress Note ---
Date of Service February 13, 2024 Assessment & Plan (1) Appendicitis: Plan: POD # 1.5 s/p lap appy, perforated appendicitis with phelgmon avss leukocytosis improving pain improving Plan: con't IV abx ambulate con't clears this am scds, incentive PO pain meds, add Tylenol prn Add Colace BID continue ross drain to bulb suction check CBC in AM Admission and Anticipated Discharge Date Admission Date: February 11, 2024 Subjective feeling better today pain controlled tolerating clear liquids passing gas no n,v no chest pain or sob ambulated hallway yesterday urinating without difficulty Physical Exam Constitutional: WD/WN, vitals as above cooperative and comfortable; no acute distress and not ill appearing Respiratory: normal respiratory effort; no respiratory distress Gastrointestinal (Abdomen): Inspection/Auscultation: abdomen normal to inspection, + abdominal surgical incision (c/d/i with dermabond) and + abdominal surgical drain present (serosanguineous); abdomen not distended Percussion/Palpation: + abdomen tender (RLQ and at incision sites, appropriate postop) and abdomen soft; no guarding, abdomen not rigid and abdomen not firm Skin: no rashes, warm and dry Psychiatric: A+Ox3, euthymic affect Results & Data Vital Signs (Past 12 Hours) Vital Signs Temp Pulse Resp BP Pulse Ox O2 Del Method 02/13/24 07:50 36.8 C 68 18 121/70 94 Room Air Laboratory Results 02/13/24 Range/Units 06:46 WBC 14.96 H (4.8-10.8) K/ul RBC 3.92 L (4.20-5.40) M/uL Hgb 11.6 L (12.0-16.0) g/dl Hct 33.8 L (37.0-47.0) % MCV 86.2 (80.0-100.0) fL MCH 29.6 (25.0-34.0) pg MCHC 34.3 (32.0-36.0) g/dL RDW Std Deviation 39.8 (36.4-46.3) fL RDW Coeff of Tomas 12.8 (11.5-14.5) % Plt Count 197 (130-400) K/uL MPV 10.7 (9.4-12.4) fL Immature Gran % (Auto) 0.5 % Neut % (Auto) 80.2 % Lymph % (Auto) 12.4 % [place] % (Auto) 6.6 % Eos % (Auto) 0.2 % Baso % (Auto) 0.1 % Neut # (Auto) 12.00 H (1.40-6.50) K/uL Lymph # (Auto) 1.85 (1.20-3.40) K/uL [place] # (Auto) 0.99 H (0.11-0.59) K/uL Eos # (Auto) 0.03 (0.00-0.50) K/uL Baso # (Auto) 0.02 (0.00-0.20) K/uL Immature Gran # (Auto) 0.07 (0.01-0.20) K/uL
[2024-02-13] MEDS: DOCUSATE SODIUM 100 MG CAP PO SCH (09:47)
[2024-02-13] MEDS: ACETAMINOPHEN 325 MG TAB PO PRN (12:43)
[2024-02-13] MEDS: ONDANSETRON INJ 2 MG/ML 2 ML VIAL IV PRN (15:27)
[2024-02-14 08:17] LABS: Basophils # (auto) 0.04 K/uL (0.00-0.20); Basophils % (auto) 0.3 %; Eosinophils # (auto) 0.23 K/uL (0.00-0.50); Eosinophils % (auto) 1.8 %; Hematocrit (blood only) 35.6 % (37.0-47.0); Immature Granulocytes # (auto) 0.06 K/uL (0.01-0.20); Immature Granulocytes % (auto) 0.5 %; Lymphocytes # (auto) 1.81 K/uL (1.20-3.40); Lymphocytes % (auto) 14.5 %; Mean Corpuscular Hemoglobin 29.3 pg (25.0-34.0); Mean Corpuscular Hgb Conc 33.7 g/dL (32.0-36.0); Mean Platelet Volume 10.5 fL (9.4-12.4); Monocytes # (auto) 1.03 K/uL (0.11-0.59); Monocytes % (auto) 8.2 %; Neutrophils # (auto) 9.33 K/uL (1.40-6.50); Neutrophils % (auto) 74.7 %; Platelet Count 235 K/uL (130-400); RDW Coefficient of Variation 12.9 % (11.5-14.5); RDW Standard Deviation 41.2 fL (36.4-46.3); Red Blood Count 4.09 M/uL (4.20-5.40)
--- NOTE | 2024-02-14 08:22 | Surgery Progress Note ---
Date of Service February 14, 2024 Assessment & Plan (1) Appendicitis: Plan: POD # 2.5 s/p lap appy, perforated appendicitis with phlegmon avss leukocytosis improving pain improving Plan: regular diet ambulate continue iv zosyn likely home this afternoon Dr. Mckeon has seen and examined pt, agrees with above. Admission and Anticipated Discharge Date Admission Date: February 11, 2024 Subjective feeling good pain controlled and improving, more soreness now no n,v tolerating full liquids last night +flatus Physical Exam Constitutional: WD/WN, vitals as above cooperative and comfortable; no acute distress and not ill appearing Gastrointestinal (Abdomen): Inspection/Auscultation: abdomen normal to inspection and + abdominal surgical drain present (serosanguineous); abdomen not distended Percussion/Palpation: + abdomen tender (at incision sites and RLQ) and abdomen soft; no guarding and abdomen not rigid Skin: no rashes, warm and dry Psychiatric: A+Ox3, euthymic affect Results & Data Laboratory Results 02/14/24 Range/Units 07:28 WBC 12.50 H (4.8-10.8) K/ul RBC 4.09 L (4.20-5.40) M/uL Hgb 12.0 (12.0-16.0) g/dl Hct 35.6 L (37.0-47.0) % MCV 87.0 (80.0-100.0) fL MCH 29.3 (25.0-34.0) pg MCHC 33.7 (32.0-36.0) g/dL RDW Std Deviation 41.2 (36.4-46.3) fL RDW Coeff of Tomas 12.9 (11.5-14.5) % Plt Count 235 (130-400) K/uL MPV 10.5 (9.4-12.4) fL Immature Gran % (Auto) 0.5 % Neut % (Auto) 74.7 % Lymph % (Auto) 14.5 % [place] % (Auto) 8.2 % Eos % (Auto) 1.8 % Baso % (Auto) 0.3 % Neut # (Auto) 9.33 H (1.40-6.50) K/uL Lymph # (Auto) 1.81 (1.20-3.40) K/uL [place] # (Auto) 1.03 H (0.11-0.59) K/uL Eos # (Auto) 0.23 (0.00-0.50) K/uL Baso # (Auto) 0.04 (0.00-0.20) K/uL Immature Gran # (Auto) 0.06 (0.01-0.20) K/uL
[2024-02-14 09:00] VITALS: BP 109/66; PULSE 79; RESP 14; TEMP 97.9; O2SAT 97
== END 2024-02-14 16:23 | disposition home or self-care (01) | DRG 399 ==
LOC: ED 11:28 → 3N 16:31 → OR 16:31 → OBSVTOIN 19:01